=== PATIENT | female | born 1945 | race Caucasian/White ===

== ENCOUNTER 2018-01-30 12:08 | Emergency (ER) | payer SELFPAY ==
[~2018-01-30] VITALS: Ht 152.4 cm; Wt 60.0 kg
[2018-01-30] MEDS ORDERED: HALOPERIDOL 5 MG/ML ONE (12:29)
[2018-01-30 12:57] VITALS: BP 141/77
[2018-01-30] MEDS ORDERED: LORazepam 2 MG/ML, 1ML IM PRN (13:00)
[2018-01-30] MEDS ORDERED: HALOPERIDOL 5 MG/ML IM PRN (13:00)
[2018-01-30] MEDS ORDERED: CEFTRIAXONE 1,000 MG IM ONE (14:00)
[2018-01-30] MEDS ORDERED: CEFTRIAXONE 1,000 MG ONE (14:22)
[2018-01-30] MEDS ORDERED: IBUPROFEN 800 MG TABLET ONE (14:47)
== END 2018-01-30 16:08 | disposition home or self-care (01) ==
LOC: ED 13:46
DX: N30.90 Cystitis, unspecified without hematuria (principal); R51 Headache
CPT/HCPCS: 96372; 99283; J0696